=== PATIENT | female | born 1960 | race American Indian/Alaskan Native ===

== ENCOUNTER 2017-09-19 09:51 | Outpatient (CLI) | payer OTHER ==
--- NOTE | 2017-09-19 10:19 | XRay Report ---
RIGHT HIP RADIOGRAPHS INDICATION: Right hip pain. COMPARISON: None similar. FINDINGS: An AP pelvic and right hip radiographs with a frog-leg projection demonstrate preserved femoral head contours, though approximately 1 cm subtle subarticular cyst in the right femoral head at approximately 1 o'clock position not excluded. Imaged bilateral SI and hip joints appear intact. Lower lumbar degenerative changes. Possible osteopenia. Nonobstructive bowel gas pattern. CONCLUSION: No definite acute right hip radiographic abnormality with few degenerative changes, as described. Please also correlate clinically and note that subtle avascular necrosis, if suspected, may be better detected with an MRI. Thank you for the opportunity to participate in this patient's care.
== END 2017-09-19 09:52 | disposition home or self-care (01) ==
LOC: SPVIMAG 09:51
PROVIDERS: ATTEND Orthopaedic Surgery Sports Medicine
DX: M16.11 Unilateral primary osteoarthritis, right hip (principal); M47.896 Other spondylosis, lumbar region